=== PATIENT | female | born 1960 | race Caucasian/White ===

== ENCOUNTER → 2019-05-16 | Day surgery (SDC) | payer BC ==
[~2019-05-16] MED LIST: Propofol 200 MG/20 ML SDV IV ONE
[2019-05-16] MEDS: Lactated Ringers 1,000 ML IV SCH (09:46)
--- NOTE | 2019-05-16 17:06 | OR ---
DATE OF OPERATION: 05/16/2019 PREOPERATIVE DIAGNOSIS: HISTORY OF POLYPS. POSTOPERATIVE DIAGNOSIS: HISTORY OF POLYPS. SURGEON: Jv Oliver MD PROCEDURE: FULL-LENGTH COLONOSCOPY WITH FORCEPS POLYP REMOVAL X1. ANESTHESIA: MAC. COMPLICATIONS: None. SPECIMEN: Sessile rectal polyp of less than 4 mm. FINDINGS: 1. Full-length colonoscopy. 2. Small sessile polyp in rectal vault. RECOMMENDATIONS: Followup colonoscopy in 5 years, pending pathology report. INDICATIONS: The patient has a prior history of polyp removals. It has been over 10 years since her last scope. Alana Mendoza PA-C, sent her for a diagnostic procedure. DESCRIPTION OF PROCEDURE: The patient was prepped and draped, placed in the left lateral decubitus position. A lubricated Olympus colonoscope was inserted and easily advanced to the cecum. The patient had a voluminous amount of stool, but it was all liquid and most of this could easily be suctioned, got an overall wonderful look at her colon. We were able to directly visualize the ileocecal valve and appendiceal orifice. Upon withdrawal, the right transverse and descending colons appeared completely benign. Throughout the entire sigmoid colon, I could find no other polyps, masses, ulceration, bleeding sites, vascular abnormalities, or signs of colitis. In the rectal vault, the patient had a very small flat likely hyperplastic polyp. We removed it in its entirety with 2 cold forceps biopsies. Retroflexion showed no other lesions. She does have perianal hemorrhoid disease with some anal skin tags. Air was then suctioned. Scope was removed without complication. BLAZE/DAJUAN /[id number]
--- NOTE | 2019-05-16 18:36 | OR ---
DATE OF OPERATION: 05/16/2019 ADDENDUM: PREOPERATIVE DIAGNOSIS: SCREENING COLONOSCOPY. POSTOPERATIVE DIAGNOSIS: SCREENING COLONOSCOPY. SURGEON: Jv Oliver MD INDICATIONS: The patient was seen by Alana Mendoza PA-C, for routine physical. It had been over 10 years since her last colonoscopy. Alana sent her for screening colonoscopy. MJP/MODL /[id number]
== END ==
LOC: CC.SDS 08:40
PROVIDERS: ATTEND Family Medicine
DX: Z12.11 Encounter for screening for malignant neoplasm of colon (principal); K62.1 Rectal polyp; K64.4 Residual hemorrhoidal skin tags; I10 Essential (primary) hypertension; E78.00 Pure hypercholesterolemia, unspecified; E03.9 Hypothyroidism, unspecified; K21.9 Gastro-esophageal reflux disease without esophagitis; G47.30 Sleep apnea, unspecified; F32.9 Major depressive disorder, single episode, unspecified; F41.9 Anxiety disorder, unspecified; N39.3 Stress incontinence (female) (male); M19.90 Unspecified osteoarthritis, unspecified site; E66.01 Morbid (severe) obesity due to excess calories; Z68.43 Body mass index [BMI] 50.0-59.9, adult; Z87.891 Personal history of nicotine dependence; Z88.8 Allergy status to other drugs, medicaments and biological substances; Z79.899 Other long term (current) drug therapy; Z86.010 Personal history of colon polyps; Z99.89 Dependence on other enabling machines and devices
CPT/HCPCS: 45380; J2704; J7120

== ENCOUNTER → 2021-01-20 | Day surgery (SDC) | payer BC ==
[~2021-01-20] MED LIST changes: +Ketamine 200 MG/20 ML MDV ONE; +Lactated Ringers 1,000 ML IV SCH; +Lidocaine 1% 30 ML SDV ONE; +Lidocaine 2% 5 ML SDV ONE; +Midazolam 1 MG/ML 2 ML SDV ONE; +Ondansetron 4 MG/2 ML SDV ONE; -Propofol 200 MG/20 ML SDV IV ONE; +Propofol 200 MG/20 ML SDV ONE; +fentaNYL 100 MCG/2 ML SDV ONE
--- NOTE | 2021-01-20 10:36 | OR ---
DATE OF OPERATION: 01/20/2021 PREOPERATIVE DIAGNOSIS: CYST, RIGHT THUMB BETWEEN THE METACARPOPHALANGEAL AND INTERPHALANGEAL JOINTS. POSTOPERATIVE DIAGNOSIS: CYST, RIGHT THUMB BETWEEN THE METACARPOPHALANGEAL AND INTERPHALANGEAL JOINTS. SURGEON: Tobi Hampton MD PROCEDURE: EXCISION OF SUBCUTANEOUS NODULE, RIGHT THUMB. THIS MEASURED APPROXIMATELY 3 MM IN DIAMETER. ANESTHESIA: Local plus MAC. SPECIMEN: Subcutaneous nodule. INDICATIONS: This 60-year-old female has a positive symptomatic painful cyst in the right thumb. This is palpable between the metacarpophalangeal joint and the interphalangeal joint of the thumb. This is on the dorsal surface of the thumb. It has been present for several months and bothers her when she uses her hand for gripping. DESCRIPTION OF PROCEDURE: After adequate preparation, 1% xylocaine was used to infiltrate the skin over this palpable cyst. Incision was made and carried down through the subcutaneous tissue. Exploration showed this to be a subcutaneous hard nodule. It could be a deposit of necrotic fat tissue. I had expected it to be attached to the extensor tendon of the thumb, but this is clearly not attached, and there were no abnormalities on the tendon of the thumb. The cyst nodule was excised. The wound was closed using 4-0 Vicryl for subdermal layer and running 4-0 nylon for the skin. BPB/HOSSEINL /[id number]
== END ==
LOC: CC.SDS 08:09
PROVIDERS: ATTEND Surgery
DX: D17.21 Benign lipomatous neoplasm of skin and subcutaneous tissue of right arm (principal); I10 Essential (primary) hypertension; E78.00 Pure hypercholesterolemia, unspecified; E03.9 Hypothyroidism, unspecified; G47.00 Insomnia, unspecified; K21.9 Gastro-esophageal reflux disease without esophagitis; Z88.8 Allergy status to other drugs, medicaments and biological substances; Z79.899 Other long term (current) drug therapy; Z98.890 Other specified postprocedural states; Z98.84 Bariatric surgery status
CPT/HCPCS: 26115; J2250; J2405; J2704; J3010; J7120